=== PATIENT | male | born 1980 | race Caucasian/White ===

== ENCOUNTER 2022-12-22 17:42 | Emergency (ER) | payer SELFPAY ==
[~2022-12-22] VITALS: Ht 188 cm; Wt 121.6 kg
[2022-12-22 17:49] VITALS: BP 150/111
[2022-12-22] MEDS ORDERED: SULF1TAB49 PO (20:50)
[2022-12-22] MEDS ORDERED: CEPH-585 PO (20:50)
[2022-12-22] MEDS ORDERED: ALPR1TAB2 PO (20:50)
== END 2022-12-22 21:08 | disposition home or self-care (01) ==
LOC: ER 17:44
DX: R60.0 Localized edema (principal); Z88.5 Allergy status to narcotic agent; Z79.899 Other long term (current) drug therapy
CPT/HCPCS: 99283

== ENCOUNTER 2022-12-29 20:20 | Emergency (ER) | payer MEDICAID ==
[~2022-12-29] VITALS: Ht 188 cm; Wt 108.0 kg
[~2022-12-29 20:20] MED LIST: ALPR1TAB2 PO; CEPH-585 PO; SULF1TAB49 PO
[2022-12-29 20:23] VITALS: BP 159/92
[2022-12-29] MEDS ORDERED: CEPH250T PO (20:44)
[2022-12-29] MEDS ORDERED: SULF1TAB45 PO (20:44)
[2022-12-29] MEDS ORDERED: IBUP-1984 PO (20:44)
[2022-12-29] MEDS ORDERED: ketorolac tromethamine 15mg/ml inj. IM ONE (20:45)
[2022-12-29] MEDS ORDERED: cephalexin 500mg capsule PO ONE (20:45)
[2022-12-29] MEDS ORDERED: DULO60CA60 PO (20:58)
== END 2022-12-29 21:05 | disposition home or self-care (01) ==
LOC: ER 20:20
DX: L03.116 Cellulitis of left lower limb (principal); L03.115 Cellulitis of right lower limb; Z79.899 Other long term (current) drug therapy
CPT/HCPCS: 96372; 99283; J1885